=== PATIENT | female | born 2000 | race Caucasian/White ===

== ENCOUNTER 2019-10-13 18:29 | Emergency (ER) | payer OTHER ==
[~2019-10-13] VITALS: Ht 147.3 cm; Wt 31.8 kg
[2019-10-13 18:37] VITALS: BP 150/112
--- NOTE | 2019-10-13 18:48 | NUR ---
Patient ambulated to bed 11. RN evaluating patient at bedside.
--- NOTE | 2019-10-13 19:04 | NUR ---
ATTEMPTED TO DO AN EKG ON PATIENT. PATIENT IS SUPER SHAKEY AND SCRATCHES HER NECK CONSTANTLY. PATIENT RIPPED ALL THE LEADS AND AND VITAL SIGNS CORDS OFF. PATIENT IS UNABLE TO REMAIN CALM AND UNABLE TO DO EKG AT THIS TIME. DR. REINA MADE AWARE.
[2019-10-13] MEDS ORDERED: LORazepam 2 MG/ML VIAL IVP ONE (19:05)
[2019-10-13] MEDS ORDERED: NACL 0.9% 1,000 ML IV ONE (19:05)
--- NOTE | 2019-10-13 19:12 | NUR ---
REPORT RECEIVED FROM MARIA LUZ GRAVES FOR CONTINUATION OF CARE.
--- NOTE | 2019-10-13 19:20 | NUR ---
18 Y/O FEMALE BIB MOTHER C/O DISORIENTATIO AND ANXIETY FOR 2 DAYS. PTS MOTHER STATES PT HAS NOT EATEN OR SLEPT IN 2 DAYS, IS DISORIENTATED, GCS: 13. PT IS TACHYPNEIC AND TACHYCARDIC. PT IS VISIBLY SHAKING AND IS NONCOOPERATIVE WITH COMMANDS. PT BASELINE IS AAOX4. PT MOTHER STATES SHE HAS BEEN TAKING NEW HERBAL SUPPLEMENTS FOR 2 WEEKS, AND HYDRALIZINE FOR ANXIETY. PMH: ANXIETY NKDA
--- NOTE | 2019-10-13 19:30 | NUR ---
PT RESTING IN BED, LOCKED AND IN LOWEST POSITION, HOB ELEVATED, SIDE RAIL X2 FOR PT SAFETY. PT CONNECTED TO CARDIAC MONTIOR, PULSE OX AND BP CUFF. RR EVEN AND UNLABORED, HR 103 , VSS , MOTHER AT BEDSIDE. PT PROVIDED BLANKET FOR COMFORT.
[2019-10-13 19:31] LABS: BASOPHILS % (AUTO) 0.4 % (0.0-2.0); LYMPHOCYTES # (AUTO) 1.5 K/uL (2.5-16.5); LYMPHOCYTES % (AUTO) 19.3 % (20.5-51.1); MEAN CORPUSCULAR HEMOGLOBIN 30 pg (27-31); MEAN CORPUSCULAR HGB CONC 33 g/dL (33-37); MEAN CORPUSCULAR VOLUME 89.2 fL (80-94); MONOCYTES # (AUTO) 0.6 K/uL (0.8-1.0); NEUTROPHILS # (AUTO) 5.8 K/uL (1.8-7.7); NEUTROPHILS % (AUTO) 72.3 % (42.2-75.2); PLATELET COUNT (AUTO) 300 K/uL (140-450); RED BLOOD CELL COUNT(AUTO) 4.71 MIL/uL (4.20-5.40); RED CELL DISTRIBUTION WIDTH 13.3 % (11.6-13.7)
[2019-10-13 19:46] LABS: ALBUMIN 4.6 g/dL (3.4-5.0); ANION GAP 23.3 (8-16); CARBON DIOXIDE 19.4 mmol/L (21-32); POTASSIUM 3.7 mmol/L (3.5-5.1); TOTAL BILIRUBIN 1.1 mg/dL (0.0-1.0)
--- NOTE | 2019-10-13 20:08 | NUR ---
Patient being evaluated by Dr. Fleming at bedside.
--- NOTE | 2019-10-13 20:20 | NUR ---
PER DR. LOUIS NO URINE NEEDED AT THIS TIME.
--- NOTE | 2019-10-13 20:21 | NUR ---
PT CALM AND RESTING IN BED, PT STATES SHE IS FEELING MUCH BETTER NOW. PT RR EVEN AND UNLABORED, VSS.
--- NOTE | 2019-10-13 20:24 | NUR ---
IV removed, catheter intact and site benign. Applied folded 4x4 gauze and tape to stop bleeding.
[2019-10-13 20:27] VITALS: BP 113/78
--- NOTE | 2019-10-13 20:27 | NUR ---
Patient discharged with v/s stable. Written and verbal after care instructions given and explained. Patient verbalized understanding. Ambulatory with steady gait. All questions addressed prior to discharge. Advised to follow up with PMD.
== END 2019-10-13 20:27 | disposition home or self-care (01) ==
LOC: MED 18:29
DX: F41.9 Anxiety disorder, unspecified (principal)
CPT/HCPCS: 36415; 80053; 85025; 96374; 99283; J2060; J7030

== ENCOUNTER 2019-10-15 11:51 | Emergency (ER) | payer OTHER ==
[~2019-10-15] VITALS: Ht 147.3 cm; Wt 36.3 kg
[2019-10-15 11:55] VITALS: BP 128/71
[2019-10-15] MEDS ORDERED: LORazepam 2 MG/ML VIAL IM ONE (12:20)
[2019-10-15 14:05] LABS: FREE T4 (FREE THYROXINE) 1.74 ng/dL (0.76-1.46); THYROID STIMULATING HORMONE 0.44 uIU/mL (0.34-3.74)
[2019-10-15 14:06] LABS: BARBITURATE, URINE NEGATIVE ng/ml (NEG <=200); BENZODIAZEPINE, URINE POSITIVE ng/mL (NEG <=200); CANNABINOID, URINE NEGATIVE ng/mL (NEG <=50); COCAINE, URINE NEGATIVE ng/mL (NEG <=300); OPIATE, URINE NEGATIVE ng/mL (NEG <=2000); PHENCYCLIDINE SCREEN,URINE NEGATIVE ng/mL (NEG <=25)
[2019-10-15 14:27] VITALS: BP 109/72
== END 2019-10-15 14:28 | disposition home or self-care (01) ==
LOC: MED 11:51
DX: F41.9 Anxiety disorder, unspecified (principal)
CPT/HCPCS: 36415; 80305; 81002; 81025; 84439; 84443; 93005; 96372; 99284; J2060